=== PATIENT | male | born 1985 | race Two or more races ===

== ENCOUNTER 2019-04-04 17:58 | Emergency (ER) ==
[~2019-04-04] VITALS: Ht 190.5 cm; Wt 93.2 kg
[2019-04-04 21:35] VITALS: BP 130/82
[2019-04-04] MEDS: PENICILLIN G BENZATHINE LA 1,200,000 UNITS/2 ML SYRINGE IM ONE (21:41)
== END 2019-04-04 21:53 | disposition home or self-care (01) ==
LOC: EMS 18:00
DX: J02.8 Acute pharyngitis due to other specified organisms (principal); B97.89 Other viral agents as the cause of diseases classified elsewhere
CPT/HCPCS: 96372; 99283; J0561